=== PATIENT | female | born 1970 | race Caucasian/White ===

== ENCOUNTER 2018-02-14 16:07 | Emergency (ER) | payer BC ==
--- NOTE | 2018-02-14 16:49 | RAD ---
HISTORY: Numbness in groin, rule out DVT COMPARISONS: None relevant TECHNIQUE: Multiple transverse and longitudinal ultrasound images were obtained of the right lower extremity from the level of the common femoral vein inferiorly through to the infrapopliteal veins using grayscale, color Doppler, and spectral Doppler imaging with and without compression and with augmentation. Comparison images were obtained of the contralateral common femoral vein. FINDINGS: VEINS: The venous system of the right lower extremity is compressible throughout its course, with normal flow on color Doppler imaging and normal response to augmentation on spectral Doppler imaging. SOFT TISSUES: Unremarkable. OTHER FINDINGS: None. IMPRESSION: NO RIGHT LOWER EXTREMITY DEEP VEIN THROMBOSIS
[2018-02-14 17:06] VITALS: BP 128/98
--- NOTE | 2018-02-14 18:26 | ED ---
Jason Gaming Angela, scribed for Terry Guerrero MD on 02/14/18 at 1653 . Lower Extremity - HPI Summary HPI Summary: This pt is a 47 y/o female presenting to [facility] c/o right groin numbness for the past several weeks. She additionally notes right calf tingling and heaviness, described as "almost like it is falling asleep." Denies any pain, chest pain. She went to see a storm door maker for rash noted on bilateral feet and was told it was from sitting too long on her feet during yoga. Pt then stopped sitting on her feet during yoga and noticed that her feet became worse. She has recent diagnosis of multiple uterine fibroids. Pt is a former smoker, she quit in July 2017. - History of Current Complaint Chief Complaint: EDExtremityLower Stated Complaint: RT LEG NUMBNESS AND RASH Time Seen by Provider: 02/14/18 16:49 Hx Obtained From: Patient Mechanism Of Injury: Other - no injury or trauma Onset of Pain: Days Onset/Duration: Still Present Severity Currently: None Pain Intensity: 0 Pain Scale Used: 0-10 Numeric Timing: Lasting Weeks Location: Is Discrete @ - right groin Associated Signs And Symptoms: Positive: Other - rash on bilateral feet Aggravating Factor(s): Nothing Alleviating Factor(s): Nothing Able to Bear Weight: Yes - Allergies/Home Medications Allergies/Adverse Reactions: Allergies Allergy/AdvReac Type Severity Reaction Status Date / Time No Known Allergies Allergy Verified 11/29/14 14:00 PMH/Surg Hx/FS Hx/Imm Hx Endocrine/Hematology History: Denies: Hx Diabetes Cardiovascular History: Denies: Hx Hypertension History: Reports: Other Problems/Disorders - uterine fibroids - Cancer History Hx Chemotherapy: No Hx Radiation Therapy: No - Surgical History Surgery Procedure, Year, and Place: 05/26 2 fibroadenomas removed 12 oclock postion right breast Infectious Disease History: No Infectious Disease History: Denies: Traveled Outside the [place] in Last 30 Days - Family History Known Family History: Positive: Hypertension - Mother Family History: Mother: anxiety, depression - Social History Alcohol Use: Weekly Substance Use Type: Reports: None Smoking Status (MU): Heavy Every Day Tobacco Smoker Review of Systems Negative: Fever, Chills Negative: Chest Pain Gastrointestinal: Negative Genitourinary: Negative Positive: Rash Positive: Paresthesia - right calf, Numbness - right groin numbness All Other Systems Reviewed And Are Negative: Yes Physical Exam - Summary Physical Exam Summary: Appearance: Well appearing, no pain distress Skin: warm, dry, symmetric rash on dorsal feet and escudero consistent with stasis dermatitis. Head/face: normal Eyes: EOMI, ANIBAL ENT: normal Neck: supple, non-tender Respiratory: CTA, breath sounds present Cardiovascular: RRR, pulses symmetrical Abdomen: non-tender, soft Bowel: present Musculoskeletal: normal, strength/ROM intact Neuro: normal, sensory motor intact, A&Ox3 Triage Information Reviewed: Yes Vital Signs On Initial Exam: Initial Vitals Temp Pulse Resp BP Pulse Ox 98.0 F 83 14 128/100 97 02/14/18 16:09 02/14/18 16:09 02/14/18 16:09 02/14/18 16:09 02/14/18 16:09 Vital Signs Reviewed: Yes Diagnostics - Vital Signs Vital Signs Temp Pulse Resp BP Pulse Ox 02/14/18 16:09 98.0 F 83 14 128/100 97 - Laboratory Lab Statement: Any lab studies that have been ordered have been reviewed, and results considered in the medical decision making process. - Ultrasound No standard instances Ultrasound Interpretation: No Acute Changes - Right lower extremity US IMPRESSION: No right lower extremity deep vein thrombosis. Dr. Guerrero has reviewed this radiology report. Ultrasound Interpretation Completed By: Radiologist Lower Extremity Course/Dx - Course Course Of Treatment: Patient with some discomfort in the right calf after experiencing areas of numbness in her legs. She has history of fibroids that she was concerned for IVC compression. There is no evidence for DVT on vascular ultrasound. She has no significant pain but her symptoms likely are radicular in nature. She'll follow up with her primary care physician. - Diagnoses Provider Diagnoses: Lumbar radiculopathy, Stasis dermatitis Discharge - Sign-Out/Discharge Documenting (check all that apply): Discharge/Admit/Transfer - Discharge to home - Discharge Plan Condition: Good Disposition: HOME Patient Education Materials: Lumbar Radiculopathy (ED) Referrals: Ian Artis MD [Primary Care Provider] - Additional Instructions: [facility] family physician to follow-up. Compression garments. Regular activity will help. Return if worse, significant pain, difficulty with bowel or bladder , significant numbness/weakness, new symptoms or other concerns - Billing Disposition and Condition Condition: GOOD Disposition: HOME The documentation as recorded by the Jason mckinley Angela accurately reflects the service I personally performed and the decisions made by me, Terry Guerrero MD.
== END 2018-02-14 17:03 | disposition home or self-care (01) ==
LOC: ED 16:07
DX: M54.16 Radiculopathy, lumbar region (principal); I87.2 Venous insufficiency (chronic) (peripheral); R21 Rash and other nonspecific skin eruption; F17.210 Nicotine dependence, cigarettes, uncomplicated
CPT/HCPCS: 99282

== ENCOUNTER 2018-05-03 07:46 | Observation (INO) | payer BC ==
[~2018-05-03 07:46] MED LIST: Buffered Lidocaine 0.9% SYRIN* 5 ML/SYR SYRINGE INTRADERM ONE; Bupivacaine 0.25% W/EPI* 10 ML SDV ONE; Bupivacaine 0.5% PF 10 ML VIAL INJ ONE; Famotidine IV* 10 MG/ML 2 ML (20 mg) IV ONE; Ondansetron TAB* 4 MG PO ONE; Sodium Citrate/Citric Acid* 15 ML UDC PO ONE
[2018-05-03] MEDS ORDERED: Sodium Citrate/Citric Acid* 15 ML UDC ONE (07:59)
[2018-05-03] MEDS ORDERED: Ondansetron ODT TAB* 4 MG ONE (07:59)
[2018-05-03] MEDS ORDERED: Famotidine IV* 10 MG/ML 2 ML (20 mg) ONE (07:59)
[2018-05-03] MEDS ORDERED: ceFAZolin 2 GM PREMIX (*) 2 GM/50 ML BAG IVPB ONE (07:59)
[2018-05-03 08:51] LABS: ABS Basophils 0.1 10^3/ul (0-0.2); ABS Eosinophils 0.2 10^3/ul (0-0.6); ABS Lymphocytes 1.5 10^3/ul (1.0-4.8); ABS Monocytes 0.4 10^3/ul (0-0.8); ABS Neutrophils 2.9 10^3/ul (1.5-7.7); ABS Nucleated RBC 0 10^3/ul; Eosinophil % 4.4 % (0-6); Hematocrit 41 % (35-47); Hemoglobin 13.8 g/dl (12.0-16.0); Lymphocyte % 29.8 % (25-47); Mean Corpuscular HGB Conc 34 g/dl (31-36); Mean Corpuscular Hemoglobin 32 pg (27-31); Mean Corpuscular Volume 93 fL (80-97); Mean Platelet Volume 8.4 um3 (7.4-10.4); Nucleated Red Blood Cells % 0.1; Platelet Count 288 10^3/ul (150-450); Red Blood Count 4.37 10^6/ul (4.00-5.40); Red Cell Distribution Width 13 % (10.5-15); White Blood Count 5.1 10^3/ul (3.5-10.8)
[2018-05-03] MEDS ORDERED: Rocuronium* 10 MG/ML VIAL ONE ×2 (08:52→10:58)
[2018-05-03] MEDS ORDERED: Propofol* 10 MG/ML 20 ML BTL IV PUSH ONE ×2 (08:52→10:25)
[2018-05-03] MEDS ORDERED: Lidocaine 2% PF * 5 ML VIAL ONE (08:53)
[2018-05-03] MEDS ORDERED: Midazolam* 1 MG/ML 2 ML VIAL (2 MG) ONE (08:53)
[2018-05-03] MEDS ORDERED: fentaNYL* 50 MCG/ML 2 ML VIAL (100 MCG VIAL) ONE ×2 (08:53→12:22)
[2018-05-03] MEDS ORDERED: oxyCODONE/Acetamin 5/325 MG* TAB PO PRN ×2 (09:08→13:45)
[2018-05-03] MEDS ORDERED: Naloxone* 0.4 MG/ML 1 ML VIAL IV PRN (09:08)
[2018-05-03] MEDS ORDERED: Ondansetron INJ* 2 MG/ML VIAL IV PRN (09:08)
[2018-05-03] MEDS ORDERED: Acetaminophen IV 1GM/100ML * 1,000 MG/100 ML VIAL IVPB ONE (09:08)
[2018-05-03] MEDS ORDERED: HYDROmorphone INJ* 0.5 MG/0.5 ML SYRINGE IV PRN ×2 (09:08→14:00)
[2018-05-03] MEDS ORDERED: Levalbuterol 0.63MG/3ML NEB* UNIT OF USE INH PRN (09:08)
[2018-05-03] MEDS ORDERED: oxyCODONE TAB* 5 MG TAB PO PRN (09:08)
[2018-05-03] MEDS ORDERED: EPHEDrine (Pressors)* 50 MG/ML VIAL ONE (09:57)
[2018-05-03] MEDS ORDERED: Sterile Water for Inj* 10 ML ONE (09:57)
[2018-05-03] MEDS ORDERED: Glycopyrrolate IV* 0.2 MG/ML 1 ML VIAL ONE (10:25)
[2018-05-03] MEDS ORDERED: HYDROmorphone INJ* 0.5 MG/0.5 ML SYRINGE ONE (10:34)
[2018-05-03] MEDS ORDERED: Sugammadex * 200 MG/2 ML VIAL IV PUSH ONE (11:41)
[2018-05-03] MEDS: fentaNYL* 50 MCG/ML 2 ML VIAL (100 MCG VIAL) IV PRN ×2 (12:24→12:57)
[2018-05-03] MEDS ORDERED: Acetaminophen IV 1GM/100ML * 100 ML ONE (12:27)
[2018-05-03] MEDS ORDERED: Ibuprofen TAB* 600 MG PO PRN (14:00)
[2018-05-03] MEDS: Ibuprofen TAB* 600 MG PO SCH ×2 (14:19→19:50)
[2018-05-03] MEDS: Ondansetron INJ* 2 MG/ML VIAL IV SCH ×2 (14:19→19:50)
--- NOTE | 2018-05-03 16:44 | OP ---
DATE OF OPERATION: 05/03/18 - ROOM #347 DATE OF : 66 SURGEON: Gorge Cleveland MD SPRING UPHOLSTERER: Khushboo Metcalf MD PRE-OP DIAGNOSIS: Fibroid uterus. POST-OP DIAGNOSIS: Fibroid uterus. OPERATIVE PROCEDURE: Laparoscopic supracervical hysterectomy and bilateral salpingo-oophorectomy. COMPLICATIONS: None. ESTIMATED BLOOD LOSS: 100 cc. FINDINGS: On laparoscopy, there was a large 6 cm anterior lower uterine segment fibroid distorting the uterus quite a bit. The tubes and ovaries appeared normal. The liver surface, gallbladder, and appendix all appeared normal. DESCRIPTION OF PROCEDURE: The patient identified, procedure identified as a laparoscopic supracervical hysterectomy. The patient was taken to the operating room, prepped and draped in the usual fashion in the dorsal lithotomy position under general anesthesia. A ClearView uterine manipulator was placed in the cervical os. A small infraumbilical incision was made and carried down through fat fascia and peritoneum. The GelPOINT retractor was placed. The GelPOINT regular was placed in the abdominal cavity and the abdomen was insufflated to 15 mmHg. The above findings were noted. The right infundibulopelvic ligament was grasped and ligated and incised. The broad ligament was ligated and incised. The round ligament was ligated and incised, all on the right. The same procedure was carried on the left infundibulopelvic , broad, and round ligaments. Lifting the uterus and the fibroid away from the lower uterine segment, a bladder flap was created via sharp and blunt dissection. The uterine vessels on the left side were then ligated using LigaSure. Same procedure was carried out on the right side. Once these were felt to be well ligated and the uterus showed blanching, a SupraLoop was placed over the lower uterine segment where it joins the cervix. Making care to make sure that the bowel and sidewall were away from the SupraLoop, 110 of pure cut was used to incise the uterus after the manipulator had been removed. Good hemostasis was achieved using the LigaSure. The uterus was taken inside a regular GelPOINT system bag, brought out into the incision. It was morcellated by hand exteriorly until the whole uterus and ovaries and tubes were excised. The abdomen was inspected and found to be hemostatic. Copious irrigation was utilized and suctioned out. The 5 mm trocar that had been placed earlier for the SupraLoop down in the suprapubic area was removed. The fascia was then closed using 0 Polysorb in a running fashion. Hemostasis in the subrectus and the subcu layers and the skin was closed with 4-0 Vicryl in a subcuticular fashion. Skin glue was applied. All instruments were removed from the vagina and the patient returned to recovery room in stable condition. All sponge and instrument counts were correct. [id number]/[facility]– [place] #: [id number] CROW
[2018-05-03 17:48] LABS: Hematocrit 37 % (35-47); Hemoglobin 12.8 g/dl (12.0-16.0)
[2018-05-04] MEDS: Ondansetron INJ* 2 MG/ML VIAL IV SCH ×2 (02:13→07:38)
[2018-05-04] MEDS: Ibuprofen TAB* 600 MG PO SCH ×2 (02:13→07:38)
[2018-05-04 08:05] VITALS: BP 109/79
== END 2018-05-04 10:30 | disposition home or self-care (01) ==
LOC: OR 07:46 → SSU 14:12
PROVIDERS: ADMIT Obstetrics & Gynecology; ATTEND Obstetrics & Gynecology
PROC: 0UT24ZZ Resection of Bilateral Ovaries, Percutaneous Endoscopic Approach (ICD-10-PCS; 2018-05-03)
PROC: 0UT74ZZ Resection of Bilateral Fallopian Tubes, Percutaneous Endoscopic Approach (ICD-10-PCS; 2018-05-03)
PROC: 0UT94ZZ Resection of Uterus, Percutaneous Endoscopic Approach (ICD-10-PCS; principal; 2018-05-03 09:15)
DX: D25.1 Intramural leiomyoma of uterus (principal); Z87.891 Personal history of nicotine dependence
CPT/HCPCS: 36415; 85014; 85018; 85025; 86850; 86900; 86901; 88307; A9270-GY; G0378; J0690; J1170; J2250; J2405; J2704; J3010